=== PATIENT | female | born 2000 | race Caucasian/White ===

== ENCOUNTER 2024-02-19 12:21 | Emergency (ER) | payer OTHER ==
[~2024-02-19] VITALS: Ht 165.1 cm
[2024-02-19 16:26] LABS: ALBUMIN 4.3 gm/dL (3.4-5.0); BILIRUBIN TOTAL 0.48 mg/dL (0.3-1.2); CREATININE SERUM 0.84 mg/dL (0.55-1.02); GFR 84.02; GLOBULINA 4.2 G/DL (2.4-3.5); POTASSIUM 3.65 mEq/L (3.5-5.1); TOTAL PROTEIN 8.5 gm/dL (6.4-8.2)
[2024-02-19 16:28] LABS: INR 1.09; PARTIAL THROMBOPLASTIN TIME 35.9 SECONDS (22.0-34.0); PROTHROMBIN TIME 11.4 SECONDS (9.0-11.5)
[2024-02-19 16:34] LABS: HEMATOCRIT 41.7 % (36.0-45.00); HEMOGLOBIN 14.2 g/dL (12.0-15.00); MEAN CELL VOLUME 92.7 fL (80.00-100.00); MEAN CORPUSCULAR HEMOGLOBIN 31.5 pg (27.00-32.0); PLATELET COUNT 197 K/uL (150-450); RED CELL DISTRIBUTION WIDTH 14.4 % (11.5-14.5)
== END 2024-02-19 17:19 | disposition home or self-care (01) ==
LOC: ER 12:22
PROVIDERS: General Practice
DX: R53.81 Other malaise (principal); R50.9 Fever, unspecified